=== PATIENT | female | born 1965 | race Two or more races ===

== ENCOUNTER → 2017-03-25 10:37 | Outpatient (CLI) | payer OTHER ==
[~2017-03-25] VITALS: Ht 152.4 cm; Wt 59.0 kg
[~2017-03-25 10:37] MED LIST: SYNTHROID112 MCG
== END | disposition home or self-care (01) ==
LOC: PPHC 10:37
DX: M54.5 Low back pain (principal)

== ENCOUNTER 2017-06-30 08:37 | Outpatient (CLI) | payer OTHER | END 2017-06-30 08:46 | disposition home or self-care (01) | LOC: NUCLEAR 08:37 | DX: I10 Essential (primary) hypertension (principal); I49.8 Other specified cardiac arrhythmias ==

== ENCOUNTER 2020-07-10 07:26 | Outpatient (CLI) | payer OTHER | END 2020-07-10 07:44 | disposition home or self-care (01) | LOC: SONOGRAMA 07:26 | PROVIDERS: ATTEND Internal Medicine Cardiovascular Disease | DX: M19.90 Unspecified osteoarthritis, unspecified site (principal); R10.9 Unspecified abdominal pain ==

== ENCOUNTER 2021-08-04 13:16 | Outpatient (CLI) | payer OTHER | END 2021-08-04 13:28 | disposition home or self-care (01) | LOC: NUCLEAR 13:16 | PROVIDERS: ATTEND Internal Medicine Endocrinology, Diabetes & Metabolism | DX: M81.0 Age-related osteoporosis without current pathological fracture (principal); E04.9 Nontoxic goiter, unspecified; E55.9 Vitamin D deficiency, unspecified ==

== ENCOUNTER 2022-11-19 07:23 | Outpatient (CLI) | payer OTHER | END 2022-11-19 07:45 | disposition home or self-care (01) | LOC: SONOGRAMA 07:23 | PROVIDERS: ATTEND Internal Medicine Endocrinology, Diabetes & Metabolism | DX: R31.0 Gross hematuria (principal); K76.2 Central hemorrhagic necrosis of liver; E04.9 Nontoxic goiter, unspecified ==

== ENCOUNTER 2023-04-05 14:00 | Outpatient (CLI) | payer OTHER | END 2023-04-05 14:07 | disposition home or self-care (01) | LOC: RAD 14:00 | PROVIDERS: ATTEND Specialist | DX: N20.0 Calculus of kidney (principal) ==

== ENCOUNTER 2024-01-31 13:21 | Outpatient (CLI) | payer OTHER | END 2024-01-31 13:22 | disposition home or self-care (01) | LOC: NUCLEAR 13:21 | PROVIDERS: ATTEND Obstetrics & Gynecology Maternal & Fetal Medicine | DX: M81.0 Age-related osteoporosis without current pathological fracture (principal) ==

== ENCOUNTER 2024-09-13 14:13 | Outpatient (CLI) | payer OTHER | END 2024-09-13 14:17 | disposition home or self-care (01) | LOC: SONOGRAMA 14:13 | PROVIDERS: ATTEND Physical Medicine & Rehabilitation | DX: M72.1 Knuckle pads (principal) ==